=== PATIENT | female | born 1965 | race Caucasian/White ===

== ENCOUNTER 2024-07-07 19:06 | Inpatient (IN) | payer MEDICARE, OTHER ==
[~2024-07-07] VITALS: Ht 165.1 cm; Wt 86.2 kg
[2024-07-07 19:38] LABS: BASOPHILS % (AUTO) 0.6 % (0.0-2.0); EOSINOPHILS # (AUTO) 0.3 K/uL (0.0-0.7); EOSINOPHILS % (AUTO) 4.3 % (0.0-7.0); HEMOGLOBIN 11.2 g/dL (10.9-14.3); LYMPHOCYTES # (AUTO) 2.6 K/uL (0.8-4.8); MEAN CORPUSCULAR HEMOGLOBIN 28.6 uug (24.7-32.8); MEAN CORPUSCULAR HGB CONC 33 g/dL (32.3-35.6); MEAN CORPUSCULAR VOLUME 86.9 fL (75.5-95.3); MONOCYTES # (AUTO) 0.6 K/uL (0.1-1.30); MONOCYTES % (AUTO) 7.5 % (0.0-11.0); NEUTROPHILS # (AUTO) 3.9 K/uL (1.8-8.9); NEUTROPHILS % (AUTO) 52.6 % (38.5-71.5); PLATELET COUNT (AUTO) 285 K/uL (179-408); RED BLOOD CELL COUNT(AUTO) 3.92 MIL/uL (3.63-4.92); RED CELL DISTRIBUTION WIDTH 15.8 % (12.3-17.7); WHITE BLOOD COUNT (AUTO) 7.4 K/uL (3.8-11.8)
[2024-07-07 19:44] LABS: *BILIRUBIN,URIN NEGATIVE (NEGATIVE); *CLARITY,URINE CLEAR (CLEAR); *COLOR,URINE YELLOW (YELLOW); *KETONES,URINE TRACE (NEGATIVE); *PROTEIN,URINE NEGATIVE (NEGATIVE); *UROBILINOGEN,URINE 0.2 E.U./dl (NORMAL); LEUKOCYTE ESTERASE ,URINE NEGATIVE (NEGATIVE); NITRITE, URINE NEGATIVE (NEGATIVE); UGLUCOSE 3+ (NEGATIVE)
[2024-07-07] MEDS ORDERED: AMLO-212 PO (19:46)
[2024-07-07] MEDS ORDERED: ACET-73 PO (19:46)
[2024-07-07] MEDS ORDERED: ATOR10TA PO (19:46)
[2024-07-07] MEDS ORDERED: DEUT12TA PO (19:46)
[2024-07-07] MEDS ORDERED: ALOG25TA PO (19:46)
[2024-07-07] MEDS ORDERED: glargine (19:47)
[2024-07-07] MEDS ORDERED: MULT-213 PO (19:47)
[2024-07-07] MEDS ORDERED: CLOZ100T32 PO (19:47)
[2024-07-07] MEDS ORDERED: ASCO500C18 PO (19:47)
[2024-07-07] MEDS ORDERED: INSU200I SQ (19:47)
[2024-07-07] MEDS ORDERED: SENN-18 PO (19:47)
[2024-07-07] MEDS ORDERED: INSU100V7 SQ (19:47)
[2024-07-07] MEDS ORDERED: MELA3TAB41 PO (19:47)
[2024-07-07] MEDS ORDERED: DOCU250C14 PO (19:47)
[2024-07-07] MEDS ORDERED: PANT40TA49 PO (19:47)
[2024-07-07] MEDS ORDERED: DIVA500T4 PO (19:47)
[2024-07-07] MEDS ORDERED: BISA10SU61 RC (19:47)
[2024-07-07] MEDS ORDERED: ACET325T53 PO (19:47)
[2024-07-07] MEDS ORDERED: OMEG-88 PO (19:47)
[2024-07-07] MEDS ORDERED: MAGN400O6 PO (19:47)
[2024-07-07] MEDS ORDERED: GLUC1KIT IM (19:47)
[2024-07-07] MEDS ORDERED: RISP3TAB5 PO (19:47)
[2024-07-07] MEDS ORDERED: ESTR0.5T PO (19:47)
[2024-07-07] MEDS ORDERED: NA P133E RC (19:47)
[2024-07-07] MEDS ORDERED: ZINC50TA65 PO (19:47)
[2024-07-07 20:01] LABS: DIFFERENTIAL COMMENT 1
[2024-07-07 20:02] LABS: *BLOOD, URINE TRACE (NEGATIVE)
[2024-07-07 20:03] LABS: *URINE HCG, QUAL NEGATIVE (NEGATIVE)
[2024-07-07 20:06] LABS: CALCIUM 9.4 mg/dL (8.5-10.1); CARBON DIOXIDE 27 mmol/L (21-32); CHLORIDE 100 mmol/L (98-107); CREATININE 0.8 mg/dL (0.6-1.3); POTASSIUM 4.1 mmol/L (3.5-5.1); SODIUM SERUM 135 mmol/L (136-145); UREA NITROGEN, BLOOD 18 mg/dL (7-18)
[2024-07-07 20:08] LABS: GLUCOSE 413 mg/dL (74-106)
[2024-07-07 20:12] LABS: ACETAMINOPHEN < 2.0 ug/mL (10-30); ALANINE AMINOTRANSFERASE 18 U/L (14-59); ALBUMIN 3.1 g/dL (3.4-5.0); ALKALINE PHOSPHATASE 67 U/L (50-136); ASPARTATE AMINOTRANSFERASE < 5 U/L (15-37); BILIRUBIN,DIRECT 0.1 mg/dL (0.0-0.2); BILIRUBIN,TOTAL 0.3 mg/dL (0.2-1.0); ETHANOL < 3 MG/DL (0-10); TOTAL PROTEIN, SERUM 7.6 g/dL (6.4-8.2)
[2024-07-07 20:15] LABS: *AMPHETAMINE, URINE NEGATIVE (NEGATIVE); *BARBITURATE, URINE NEGATIVE (NEGATIVE); *BENZODIAZEPINE, URINE NEGATIVE (NEGATIVE); *CANNABINOID, URINE NEGATIVE (NEGATIVE); *COCCAINE, URINE NEGATIVE (NEGATIVE); *OPIATE, URINE NEGATIVE (NEGATIVE); *PHENCYCLIDINE SCREEN,URINE NEGATIVE (NEGATIVE); BACTERIA,URINE NONE SEEN /HPF (NONE SEEN); FENTANYL, URINE NEGATIVE (NEGATIVE); RBC,URINE 0-3 /HPF (0-3); SQUAMOUS EPITHELIAL CELL,UR FEW /HPF (NONE SEEN); WBC,URINE 0-3 /HPF (0-3)
[2024-07-07] MEDS ORDERED: INSULIN REGULAR, HUMAN 1000 UNIT/10 ML VIAL ONE (20:39)
[2024-07-07] MEDS: INSULIN REGULAR, HUMAN 1000 UNIT/10 ML VIAL SQ ONE (20:45)
[2024-07-07] MEDS: risperiDONE 1 MG TABLET PO SCH (21:40)
[2024-07-07] MEDS: ACETAMINOPHEN 500 MG TABLET PO ONE (23:15)
[2024-07-07] MEDS ORDERED: ACETAMINOPHEN 500 MG TABLET ONE (23:16)
[2024-07-07 23:30] VITALS: BP 129/42; TEMP 98; O2SAT 97
[2024-07-08] MEDS ORDERED: MAGNESIUM HYDROXIDE 30 ML LIQUID UDC PO PRN
[2024-07-08] MEDS ORDERED: CLONAZEPAM 1 MG TABLET PO PRN
[2024-07-08] MEDS ORDERED: TEMAZEPAM 7.5 MG CAPSULE PO PRN ×2
[2024-07-08] MEDS ORDERED: MAG HYDROX/AL HYDROX/SIMETH 30 ML LIQUID UDC PO PRN
[2024-07-08 07:45] VITALS: BP 146/65; TEMP 98; O2SAT 98
[2024-07-08 08:00] LABS: ALANINE AMINOTRANSFERASE 17 U/L (14-59); ALBUMIN 2.6 g/dL (3.4-5.0); ALKALINE PHOSPHATASE 62 U/L (50-136); ASPARTATE AMINOTRANSFERASE 9 U/L (15-37); BILIRUBIN,TOTAL < 0.1 mg/dL (0.2-1.0); CALCIUM 8.6 mg/dL (8.5-10.1); CARBON DIOXIDE 29 mmol/L (21-32); CHLORIDE 104 mmol/L (98-107); CREATININE 0.6 mg/dL (0.6-1.3); GLUCOSE 313 mg/dL (74-106); SODIUM SERUM 138 mmol/L (136-145); TOTAL PROTEIN, SERUM 6.6 g/dL (6.4-8.2); UREA NITROGEN, BLOOD 17 mg/dL (7-18)
[2024-07-08] MEDS ORDERED: risperiDONE 1 MG/ML UDC PO SCH (09:00)
[2024-07-08] MEDS: DIVALPROEX 500 MG TABLET.DR PO SCH (10:19)
[2024-07-08] MEDS: CLOZAPINE 25 MG TABLET PO ONE (10:19)
[2024-07-08] MEDS: risperiDONE 2 MG TABLET PO SCH (10:19)
[2024-07-08] MEDS ORDERED: CHOL100034 PO (12:45)
[2024-07-08] MEDS ORDERED: ZINC220T4 PO (12:46)
[2024-07-08] MEDS ORDERED: DEXT38GE12 PO (12:47)
[2024-07-08] MEDS ORDERED: METF-440 PO (12:54)
[2024-07-08] MEDS: ACETAMINOPHEN 325 MG TABLET PO PRN (13:10)
[2024-07-08 15:29] VITALS: BP 163/65; TEMP 98; O2SAT 98
[2024-07-08] MEDS ORDERED: FLEET ENEMA 133 ML BOTTLE RC PRN (15:30)
[2024-07-08] MEDS ORDERED: DEXTROSE 50% 50 ML DISP.SYRIN IV PRN (15:30)
[2024-07-08] MEDS ORDERED: GLUCOSE ORAL GEL 15 GM TUBE PO PRN (15:30)
[2024-07-08] MEDS ORDERED: BISACODYL 10 MG SUPP.RECT RC PRN (15:30)
[2024-07-08] MEDS ORDERED: ACETAMINOPHEN 325 MG TABLET-SA PATIENTS-PAIN ONLY PO PRN (15:30)
[2024-07-08] MEDS ORDERED: Medication Not On Formulary EA (Cholecalciferol (Vitamin D3) (Vitamin D3) 2 TAB) PO SCH (17:00)
[2024-07-08] MEDS: BLOOD SUGAR DIAGNOSTIC 1 EACH STRIP VI SCH (17:11)
[2024-07-08] MEDS: INSULIN REGULAR, HUMAN 1000 UNIT/10 ML VIAL SQ PRN (17:17)
[2024-07-08] MEDS: METFORMIN HCL 500 MG TABLET PO SCH (17:32)
[2024-07-08] MEDS: CHOLECALCIFEROL 1,000 UNIT TABLET PO SCH (17:33)
[2024-07-08 19:50] VITALS: BP 120/57; TEMP 98; O2SAT 99
[2024-07-08] MEDS: ACETAMINOPHEN 500 MG TABLET PO SCH (20:25)
[2024-07-08] MEDS: MELATONIN 3 MG TABLET PO SCH (20:26)
[2024-07-08] MEDS: TEMAZEPAM 7.5 MG CAPSULE PO SCH (20:26)
[2024-07-08] MEDS: ATORVASTATIN 10 MG TABLET PO SCH (20:27)
[2024-07-08] MEDS: INSULIN GLARGINE,HUM 300 UNITS/3 ML CARTRIDGE SQ SCH (20:28)
[2024-07-08] MEDS: INSULIN REGULAR, HUMAN 300 UNITS/3 ML VIAL SQ PRN (20:28)
[2024-07-08] MEDS ORDERED: ACETAMINOPHEN ES 500 MG TABLET- SA PATIENTS-PAIN ONLY PO SCH (21:00)
[2024-07-09] MEDS: PANTOPRAZOLE SODIUM 40 MG TABLET.DR PO SCH (06:25)
[2024-07-09 08:50] LABS: THYROID STIMULATING HORMONE 1.385 mIU/mL (0.358-3.740)
[2024-07-09] MEDS ORDERED: Medication Not On Formulary EA (Zinc Sulfate 1 TAB) PO SCH (09:00)
[2024-07-09] MEDS ORDERED: ALOGLIPTIN BENZOATE 25 MG PO SCH (09:00)
[2024-07-09] MEDS ORDERED: Medication Not On Formulary EA (Estradiol 0.5 MG) PO SCH (09:00)
[2024-07-09] MEDS ORDERED: Medication Not On Formulary EA (Multivitamins W-Minerals (Multivitamin With Minerals) 1 PO SCH (09:00)
[2024-07-09] MEDS ORDERED: Medication Not On Formulary EA (Ascorbic Acid (Vitamin C) 500 MG) PO SCH (09:00)
[2024-07-09] MEDS: ESTRADIOL 1 MG TABLET PO SCH (09:01)
[2024-07-09] MEDS: CLOZAPINE 25 MG TABLET PO SCH (09:03)
[2024-07-09] MEDS: MULTIVITAMINS,THERAPEUTIC TABLET PO SCH (09:04)
[2024-07-09] MEDS: DOCUSATE SODIUM 250 MG CAPSULE PO SCH (09:04)
[2024-07-09] MEDS: AMLODIPINE 5 MG TABLET PO SCH (09:06)
[2024-07-09] MEDS: ASCORBIC ACID 500 MG TABLET PO SCH (10:16)
[2024-07-09] MEDS: ZINC SULFATE 220 MG CAPSULE PO SCH (10:17)
[2024-07-09 11:39] VITALS: BP 151/44; TEMP 97.5
[2024-07-09 20:00] VITALS: BP 140/60; TEMP 98; O2SAT 98
[2024-07-10 08:19] VITALS: BP 150/52; TEMP 97.8; O2SAT 99
[2024-07-10] MEDS ORDERED: DIVALPROEX 500 MG TABLET.DR PO SCH (15:30)
[2024-07-10] MEDS: DIVALPROEX 250 MG TABLET.DR PO SCH (15:55)
[2024-07-10 17:01] VITALS: BP 176/59; TEMP 97.9; O2SAT 99
[2024-07-10] MEDS: OLANZAPINE 5 MG TABLET PO SCH (20:43)
[2024-07-10 21:05] VITALS: BP 130/50; TEMP 98.1; O2SAT 99
[2024-07-11 09:15] VITALS: BP 124/57; TEMP 98.1; O2SAT 98
[2024-07-11 16:22] VITALS: BP 134/53; TEMP 98.1; O2SAT 98
[2024-07-11 20:11] VITALS: BP 125/47; TEMP 98; O2SAT 98
[2024-07-12 08:25] VITALS: BP 141/51; TEMP 98.3; O2SAT 98
[2024-07-12 16:47] VITALS: BP 140/71; TEMP 98.1; O2SAT 98
[2024-07-12 20:06] VITALS: BP 140/74; TEMP 98.1; O2SAT 98
[2024-07-12] MEDS: OLANZAPINE 5 MG TABLET PO SCH (20:39)
[2024-07-13 07:43] VITALS: BP 122/47; TEMP 98; O2SAT 98
[2024-07-13 15:36] VITALS: BP 104/53; TEMP 98; O2SAT 98
[2024-07-13 19:57] VITALS: BP 111/51; TEMP 98.2; O2SAT 95
[2024-07-13] MEDS: DIVALPROEX 500 MG TABLET.DR PO SCH (20:58)
[2024-07-13] MEDS ORDERED: DIVALPROEX 250 MG TABLET.DR PO SCH (21:00)
[2024-07-14 07:54] VITALS: BP 116/56; TEMP 98.2; O2SAT 99
[2024-07-14 16:18] VITALS: BP 138/47; TEMP 97.8; O2SAT 99
[2024-07-14 20:00] VITALS: BP 126/60; TEMP 98.1; O2SAT 98
[2024-07-14] MEDS: OLANZAPINE 5 MG TABLET PO SCH (20:32)
[2024-07-15 08:47] VITALS: BP 141/73; TEMP 98; O2SAT 99
[2024-07-15 15:15] VITALS: BP 122/58; TEMP 98; O2SAT 99
[2024-07-15 20:00] VITALS: BP 116/54; TEMP 98.1; O2SAT 96
[2024-07-16 08:00] VITALS: BP 137/54; TEMP 98.1; O2SAT 95
[2024-07-16] MEDS: DIVALPROEX 250 MG TABLET.DR PO SCH (13:19)
[2024-07-16 16:00] VITALS: BP 143/57; TEMP 98.1; O2SAT 97
[2024-07-16 20:13] VITALS: BP 125/48; TEMP 98; O2SAT 97
[2024-07-17 08:55] VITALS: BP 125/52; TEMP 98.2; O2SAT 98
[2024-07-17] MEDS: OLANZAPINE 5 MG TABLET PO SCH ×2 (15:58→20:32)
[2024-07-17 17:41] VITALS: BP 125/68; TEMP 98.1
[2024-07-17 20:00] VITALS: BP 146/55; TEMP 97.6; O2SAT 97
[2024-07-17] MEDS: ATORVASTATIN 10 MG TABLET PO SCH (20:33)
[2024-07-17] MEDS ORDERED: INSULIN GLARGINE,HUM 300 UNITS/3 ML CARTRIDGE SQ ONE (20:58)
[2024-07-17] MEDS: INSULIN GLARGINE,HUM 300 UNITS/3 ML CARTRIDGE SQ SCH (21:05)
[2024-07-18 08:21] VITALS: BP 137/51; TEMP 98.3; O2SAT 98
[2024-07-18] MEDS: GABAPENTIN 300 MG CAPSULE PO SCH (16:25)
[2024-07-18 16:43] VITALS: BP 114/50; TEMP 98.1; O2SAT 97
[2024-07-18 19:40] VITALS: BP 141/40; TEMP 97.9; O2SAT 98
[2024-07-19] MEDS: MAGNESIUM HYDROXIDE 30 ML LIQUID UDC PO PRN (01:27)
[2024-07-19 09:04] VITALS: BP 106/51; TEMP 98; O2SAT 98
[2024-07-19] MEDS ORDERED: DIVALPROEX 125 MG TABLET.DR PO STA (10:51)
[2024-07-19] MEDS: DIVALPROEX 250 MG TABLET.DR PO STA (11:15)
[2024-07-19] MEDS: risperiDONE 0.5 MG TABLET PO SCH (12:15)
[2024-07-19] MEDS: DIVALPROEX 250 MG TABLET.DR PO SCH (13:21)
[2024-07-19 15:07] VITALS: BP 134/51; TEMP 98.1; O2SAT 98
[2024-07-19] MEDS: SENNOSIDES 1 TABLET PO PRN (18:43)
[2024-07-19 20:00] VITALS: BP 141/63; TEMP 97.4; O2SAT 98
[2024-07-20 07:43] VITALS: BP 123/56; TEMP 98; O2SAT 98
[2024-07-20 15:07] VITALS: BP 146/63; TEMP 98; O2SAT 98
[2024-07-20 20:00] VITALS: BP 136/64; TEMP 98.1; O2SAT 98
[2024-07-21 07:34] LABS: BASOPHILS % (AUTO) 0.7 % (0.0-2.0); EOSINOPHILS # (AUTO) 0.2 K/uL (0.0-0.7); EOSINOPHILS % (AUTO) 3.5 % (0.0-7.0); HEMOGLOBIN 10.5 g/dL (10.9-14.3); LYMPHOCYTES # (AUTO) 2.3 K/uL (0.8-4.8); LYMPHOCYTES % (AUTO) 39.3 % (20.5-51.5); MEAN CORPUSCULAR HGB CONC 34 g/dL (32.3-35.6); MEAN CORPUSCULAR VOLUME 85.8 fL (75.5-95.3); MONOCYTES # (AUTO) 0.5 K/uL (0.1-1.30); MONOCYTES % (AUTO) 7.9 % (0.0-11.0); NEUTROPHILS # (AUTO) 2.8 K/uL (1.8-8.9); NEUTROPHILS % (AUTO) 48.6 % (38.5-71.5); PLATELET COUNT (AUTO) 325 K/uL (179-408); RED BLOOD CELL COUNT(AUTO) 3.62 MIL/uL (3.63-4.92); RED CELL DISTRIBUTION WIDTH 15.6 % (12.3-17.7); WHITE BLOOD COUNT (AUTO) 5.9 K/uL (3.8-11.8)
[2024-07-21 07:38] LABS: DIFFERENTIAL COMMENT 1
[2024-07-21 07:46] LABS: CALCIUM 9.2 mg/dL (8.5-10.1); CREATININE 0.6 mg/dL (0.6-1.3); MAGNESIUM 1.9 mg/dL (1.8-2.4); POTASSIUM 4.4 mmol/L (3.5-5.1)
[2024-07-21 07:48] VITALS: BP 120/51; TEMP 98; O2SAT 98
[2024-07-21] MEDS ORDERED: risperiDONE 0.5 MG TABLET PO SCH (13:00)
[2024-07-21] MEDS: risperiDONE 1 MG TABLET PO SCH (13:21)
[2024-07-21] MEDS: OLANZAPINE 5 MG TABLET PO SCH (13:21)
[2024-07-21 15:52] VITALS: BP 130/52; TEMP 98; O2SAT 98
[2024-07-21 20:00] VITALS: BP 137/58; TEMP 97.9; O2SAT 100
[2024-07-21] MEDS: INSULIN GLARGINE,HUM 300 UNITS/3 ML CARTRIDGE SQ SCH (21:03)
[2024-07-22] MEDS: CLONAZEPAM 0.5 MG TABLET PO PRN (03:35)
[2024-07-22 07:59] VITALS: BP 131/50; TEMP 98; O2SAT 96
[2024-07-22 15:53] VITALS: BP 118/55; TEMP 98; O2SAT 98
[2024-07-22 20:00] VITALS: BP 131/56; TEMP 97.4; O2SAT 98
[2024-07-23 07:51] VITALS: BP 152/53; TEMP 98; O2SAT 98
[2024-07-23 08:42] VITALS: BP 152/53
== END 2024-07-23 13:00 | DRG 885 ==
LOC: ER 19:12 → GPS 23:41
PROVIDERS: ADMIT Psychiatry & Neurology Psychiatry; ATTEND Student in an Organized Health Care Education/Training Program
DX: F20.0 Paranoid schizophrenia (principal); E11.65 Type 2 diabetes mellitus with hyperglycemia; E44.0 Moderate protein-calorie malnutrition; E87.1 Hypo-osmolality and hyponatremia; D68.59 Other primary thrombophilia; E11.42 Type 2 diabetes mellitus with diabetic polyneuropathy; E88.09 Other disorders of plasma-protein metabolism, not elsewhere classified; F29 Unspecified psychosis not due to a substance or known physiological condition; E11.51 Type 2 diabetes mellitus with diabetic peripheral angiopathy without gangrene; E78.5 Hyperlipidemia, unspecified; Z74.09 Other reduced mobility; Z85.42 Personal history of malignant neoplasm of other parts of uterus; Z90.710 Acquired absence of both cervix and uterus; Z88.0 Allergy status to penicillin; Z79.4 Long term (current) use of insulin; Z79.899 Other long term (current) drug therapy; F31.9 Bipolar disorder, unspecified; G89.29 Other chronic pain; R13.10 Dysphagia, unspecified; K21.9 Gastro-esophageal reflux disease without esophagitis; E66.9 Obesity, unspecified; Z68.31 Body mass index [BMI] 31.0-31.9, adult; I10 Essential (primary) hypertension; Z91.410 Personal history of adult physical and sexual abuse; G47.00 Insomnia, unspecified; M51.369 Other intervertebral disc degeneration, lumbar region without mention of lumbar back pain or lower extremity pain
CPT/HCPCS: 36415; 80164; 83735; 84443; 84703; 85025; 93005; A4606; A4663; A9150; G0480; J1815; J3490